=== PATIENT | female | born 1960 | race Asian ===

== ENCOUNTER 2022-07-28 20:48 | Emergency (ER) | payer SELFPAY ==
[~2022-07-28] VITALS: Ht 157.5 cm; Wt 55.0 kg
[2022-07-28] MEDS ORDERED: ACETAMINOPHEN 325MG TABLET PO ONE (21:30)
[2022-07-28] MEDS ORDERED: IBUP-2028 MT (23:54)
[2022-07-29 00:30] VITALS: BP 126/62
[2022-07-29] MEDS ORDERED: ONDA4TAB50 MT (00:50)
== END 2022-07-29 00:40 | disposition home or self-care (01) ==
LOC: ER 20:48
DX: R11.2 Nausea with vomiting, unspecified (principal); V49.59XA Passenger injured in collision with other motor vehicles in traffic accident, initial encounter; Y93.89 Activity, other specified; Y92.89 Other specified places as the place of occurrence of the external cause; Y99.8 Other external cause status
CPT/HCPCS: 72131; 72170; 73562; 99284